=== PATIENT | male | born 1980 | race Caucasian/White ===

== ENCOUNTER 2018-05-11 20:14 | Emergency (ER) | payer OTHER ==
[2018-05-11] MEDS: Diphtheria,Pertussis(Acell),Tetanus Vaccine 0.5 ML SDV inactive IM ONE (20:35)
--- NOTE | 2018-05-11 21:02 | EDM.PDOC ---
ED HPI GENERAL MEDICAL PROBLEM - General Chief Complaint: General Stated Complaint: LACERATION Time Seen by Provider: 05/11/18 20:30 Source of Information: Reports: Patient History Limitations: Reports: No Limitations - History of Present Illness INITIAL COMMENTS - FREE TEXT/NARRATIVE: This is a 37yo M who stabbed himself in the thigh accidentally going [place] the [place]. He denies any allergies and has had prior sutures with no prior side effects to anesthesia. His tetanus is up to date. Onset: Sudden Onset Date: 05/11/18 Onset Time: 20:00 Location: Reports: Lower Extremity, Right Severity: Mild - Related Data Allergies Allergy/AdvReac Type Severity Reaction Status Date / Time No Known Allergies Allergy Verified 05/11/18 20:16 Home Meds: Home Meds NK [No Known Home Meds] 05/11/18 [History] ED ROS GENERAL - Review of Systems Review Of Systems: ROS reveals no pertinent complaints other than HPI. ED EXAM, GENERAL - Physical Exam Exam: See Below Exam Limited By: No Limitations General Appearance: Alert, WD/WN, No Apparent Distress Skin Exam: Wound/Incision (2.8cm linear deep laceration) ED GENERAL MEDICAL PROCEDURES - Laceration/Wound Repair Right Anterior Thigh Lac/wound length in cm: 2.8 Appearance: Muscle Distal NVT: Neuro & Vascular Intact, No Tendon Injury Anesthetic Type: Local Local Anesthesia - Lidocaine (Xylocaine): 1% Plain Local Anesthetic Volume: Other (8) Skin Prep: Providone-Iodine (Betadine), Sterile Drape Exploration/Debridement/Repair: Wound Explored, No Foreign Material Found Closed with: Sutures Suture Size: 4-0 # of Sutures: 3 Suture Type: Nylon, Interrupted, Simple Sterile Dressing Applied: Nurse Tetanus Status Addressed: Yes Complications: No Departure - Departure Time of Disposition: 21:20 Disposition: Home, Self-Care 01 Condition: Good Clinical Impression: Laceration - Discharge Information Instructions: Wound Infection, [id number] Forms: ED Department Discharge Additional Instructions: Keep applied dressing in place for next 24 hours. Then remove, clean affected area with warm, soapy water and dry well. Apply thin strip of antibiotic ointment and reapply dressing for next 2-3 days. Then may leave open to air. Be sure to watch site for signs and symptoms of infection present including: increased redness, increased swelling, increased pain or tenderness to touch, foul drainage and/or fever present. Should any of these symptoms occur, return to be seen right away. Follow up with regular provider in 7 days for suture removal. Call with any questions.
== END 2018-05-11 21:00 | disposition home or self-care (01) ==
LOC: LB.ED 20:14
DX: S71.111A Laceration without foreign body, right thigh, initial encounter (principal); Z23 Encounter for immunization; W26.0XXA Contact with knife, initial encounter
CPT/HCPCS: 12002; 90471; 90715; 99282-25